=== PATIENT | female | born 1995 | race Caucasian/White ===

== ENCOUNTER 2017-03-03 07:01 | Emergency (ER) | payer BC ==
[~2017-03-03] VITALS: Ht 158.8 cm; Wt 72.6 kg
[2017-03-03] MEDS ORDERED: PRENATAL PLUS I1 TAB PO (11:31)
== END 2017-03-03 09:55 | disposition short-term general hospital (02) ==
LOC: ER 07:01
DX: O03.9 Complete or unspecified spontaneous abortion without complication (principal); Z88.1 Allergy status to other antibiotic agents; Z88.8 Allergy status to other drugs, medicaments and biological substances